=== PATIENT | male | born 1945 | race Caucasian/White ===

== ENCOUNTER → 2018-09-17 | Outpatient (CLI) | payer OTHER | END | disposition home or self-care (01) | LOC: PREOP 06:12 | PROVIDERS: ATTEND Surgery | DX: Z01.818 Encounter for other preprocedural examination (principal) ==

== ENCOUNTER 2018-09-23 10:13 | Day surgery (SDC) | payer MEDICARE, OTHER ==
[~2018-09-23] VITALS: Ht 175.3 cm; Wt 104.3 kg
[~2018-09-23 10:13] MED LIST: ETAN25DI SQ; METH1VIA2 IJ; PRED5TAB PO
[2018-09-23] MEDS ORDERED: NS IV 500 ML 500 ML IV PRN (10:20)
[2018-09-23] MEDS ORDERED: NS IV 500 ML 500 ML ONE (10:20)
[2018-09-23] MEDS ORDERED: fentaNYL INJECTION 100 MCG/2 ML AMP IVP ONE (10:30)
[2018-09-23] MEDS ORDERED: LIDOCAINE JELLY 2% 6 ML SYRINGE MM PRN (10:30)
[2018-09-23] MEDS ORDERED: MIDAZOLAM 2 MG/2 ML (VERSED) VIAL IVP ONE (10:30)
[2018-09-23 10:56] VITALS: BP 131/79
--- NOTE | 2018-09-23 11:19 | Conscious Sedation/ASA ---
Conscious Sedation Pre-Proced Time 10:30 ASA Score 2 For ASA 3 and 4: Consider anesthesia and medical clearance. Also, for patients with a history of failed moderate sedation consider anesthesia. Airway Lungs Heart ASA score ASA 1: a normal healthy patient ASA 2: a patient with a mild systemic disease (mid diabetes, controlled hypertension, obesity ASA 3: a patient with a severe systemic disease that limits activity (angina, COPD, prior Myocardial infarction) ASA 4: a patient with an incapacitating disease that is a constant threat to life (CHF, renal failure) ASA 5: a moribund patient not expected to survive 24 hrs. (ruptured aneurysm) ASA 6: a declared brain- patient whose organs are being harvested. For emergent operations, add the letter E after the classification Mallampati Classification Grade 2 Sedation Plan Analgesia, Amnesia, Plan communicated to team members, Discussed options with patient/fam, Discussed risks with patient/fam The patient is an appropriate candidate to undergo the planned procedure, sedation, and anesthesia. The patient immediately re-assessed prior to indication. CLAY DUKES MD Sep 23, 2018 11:19
--- NOTE | 2018-09-23 11:20 | Progress Note-Pre Operative ---
Pre-Operative Progress Note H&P Reviewed The H&P was reviewed, patient examined and no changes noted. Date Seen by Provider: Sep 23, 2018 Time Seen by Provider: 10:30 Date H&P Reviewed: Sep 23, 2018 Time H&P Reviewed: 10:30 Pre-Operative Diagnosis: family hx colon ca, screening CLAY DUKES MD Sep 23, 2018 11:20
--- NOTE | 2018-09-23 11:23 | Discharge Inst-Surgical ---
D/C Lap Instructions-ERNST Follow Up 5yrs Activity as tolerated High Fiber Diet 25g or more per day Avoid Alcohol, Caffeine, Spicy [place] and Acid foods. Drink 64 fluid oz or more of fluids per day. Symptoms to Report: Fever over 101 degree F, Nausea/Vomiting If any problems/questions: Contact your physician or go to Emergency Room CLAY DUKES MD Sep 23, 2018 11:23
[2018-09-23] MEDS ORDERED: morphine INJ 10 MG/ML 1ML (SYR OR VIAL) IVP PRN ×2 (11:30)
[2018-09-23] MEDS ORDERED: ONDANSETRON 4 MG/2 ML (SDV) Z0FRAN IVP PRN (11:30)
[2018-09-23] MEDS ORDERED: ACETAMINOPHEN 325 MG TABLET PO PRN (11:30)
[2018-09-23] MEDS ORDERED: HYDROcodone/APAP 5 MG/325 MG (LORTAB) TAB PO PRN (11:30)
[2018-09-23] MEDS ORDERED: LIDOCAINE JELLY 2% 6 ML SYRINGE ONE (11:34)
[2018-09-23] MEDS ORDERED: fentaNYL INJECTION 100 MCG/2 ML AMP ONE ×2 (11:34→12:16)
[2018-09-23] MEDS ORDERED: MIDAZOLAM 2 MG/2 ML (VERSED) VIAL ONE ×5 (11:34→12:16)
--- NOTE | 2018-09-23 12:49 | Progress Note-Post Operative ---
Post-Operative Progess Note Surgeon (s)/College Scouting Coordinator (s) Surgeon CLAY DUKES MD College Scouting Coordinator: none Pre-Operative Diagnosis family hx colon ca, screening Post-Operative Diagnosis mild chronic stage 2 ext and int hemorrhoids. Procedure & Operative Findings Date of Procedure 09/23/18 Procedure Performed/Findings colonoscopy Anesthesia Type cs Estimated Blood Loss Estimated blood loss (mL): minimal Specimens/Packing Specimens Removed none CLAY DUKES MD Sep 23, 2018 12:49
[2018-09-23 12:50] VITALS: BP 105/63
[2018-09-23 13:20] VITALS: BP 124/83
--- NOTE | 2018-09-23 14:00 | NUR ---
PT READY TO BE DISMISSED- WAITING ON RIDE, NOT ANSWERING THE PHONE CURRENTLY.
[2018-09-23 16:15] VITALS: BP 124/83
--- NOTE | 2018-09-23 16:15 | NUR ---
SPOKE WITH PT MULTIPLE TIMES REGARDING HIM NOT BEING ALLOWED TO DRIVE TODAY. PT'S BROTHER ARRIVED TO PICK PT UP. 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
--- NOTE | 2018-09-23 17:50 | OPERATIVE REPORT ---
DATE OF SERVICE: 09/23/2018 ATTENDING PRIMARY CARE PHYSICIAN: [facility] in [place], [place]. PREOPERATIVE DIAGNOSIS: Family history of colon cancer screening colonoscopy. POSTOPERATIVE DIAGNOSIS: Mild chronic stage II external and internal hemorrhoids. PROCEDURE: Colonoscopy. SURGEON: Clay Dukes MD ANESTHESIA: Conscious sedation. ESTIMATED BLOOD LOSS: Minimal. FINDINGS: Mild chronic stage II external and internal hemorrhoids. Remainder of the rectum and colon were normal. DISPOSITION: The patient tolerated the procedure well. INDICATIONS: The patient is a 73-year-old male in need of a screening colonoscopy. His last colonoscopy was 10 years ago and as far as he can remember, this was normal. He does not report any major issues with diarrhea, no constipation as well as no red blood per rectum nor any dark tarry stools. He does have a first degree family history of colon cancer with his brother being diagnosed with the disease at age 64. DESCRIPTION OF PROCEDURE: The patient was brought to the endoscopy suite, laid in the left lateral decubitus position. After adequate IV pain and sedative medications and conscious sedation anesthesia, a digital rectal examination was performed. Mild chronic stage II external and internal hemorrhoids were identified, which were not actively edematous nor inflamed and no bleeding. Normal sphincter tone was felt and there are no palpable masses. The prostate gland was palpable and appeared normal. The endoscope was then intubated to the anus and rectum gently insufflated. The endoscope was then advanced to the valves of Coleman of the rectum with no polyps or neoplasms identified. Through the sigmoid colon, no diverticulosis identified. We then proceeded through the remainder of the descending, transverse and ascending colon to the cecum. These segments were normal. There were no polyps or any neoplasms identified throughout the colon or rectum. The endoscope was then slowly withdrawn while taking a second look and suctioning of residual air with no additional findings. The patient tolerated the procedure well. We will recommend medical management with a high fiber diet with at least 30 grams of fiber daily as well as significant amounts of water to promote soft stools on a daily basis and prevent constipation and hard well-formed stools. Due to his family history of colon cancer, the recommendation is to proceed with followup colonoscopy in approximately 5 years as well. Job ID: [id number] DocumentID: [id number] Dictated Date: 09/23/2018 12:42:59 Senior Manager Mmcoe Date: 09/23/2018 17:49:48 Dictated By: CLAY DUKES MD
== END 2018-09-23 16:15 | disposition home or self-care (01) ==
LOC: ENDO 10:13
PROVIDERS: ATTEND Surgery
DX: Z12.11 Encounter for screening for malignant neoplasm of colon (principal); K64.1 Second degree hemorrhoids; Z80.0 Family history of malignant neoplasm of digestive organs; M06.9 Rheumatoid arthritis, unspecified; E03.9 Hypothyroidism, unspecified; I10 Essential (primary) hypertension; K21.9 Gastro-esophageal reflux disease without esophagitis; E78.00 Pure hypercholesterolemia, unspecified; Z85.850 Personal history of malignant neoplasm of thyroid; Z87.891 Personal history of nicotine dependence; Z79.899 Other long term (current) drug therapy

== ENCOUNTER → 2019-05-10 | Outpatient (CLI) | payer OTHER ==
[~2019-05-10] MED LIST changes: +RT-ALBUTEROL SULF 2.5 MG/3 ML PRE-MIX VIAL INH ONE
== END ==
LOC: RT 15:58
PROVIDERS: ATTEND Nurse Practitioner Family
DX: R06.00 Dyspnea, unspecified (principal); R91.8 Other nonspecific abnormal finding of lung field; R05 Cough
CPT/HCPCS: 94060; 94726; 94729

== ENCOUNTER → 2019-06-16 | Outpatient (CLI) | payer OTHER ==
[~2019-06-16] VITALS: Ht 175.3 cm; Wt 109.1 kg
[~2019-06-16] MED LIST changes: +LIDOCAINE 1% INJ 20 ML 20 ML VIAL INJ STA; +LIDOCAINE 1% INJ 20 ML 20 ML VIAL ONE; -RT-ALBUTEROL SULF 2.5 MG/3 ML PRE-MIX VIAL INH ONE
--- NOTE | 2019-06-16 11:12 | Diagnostic Imaging Report ---
INDICATION: Left thyroid nodule. Patient presents for ultrasound-guided fine-needle aspiration. FINDINGS: Patient was brought to the procedure room, placed on table in the supine position. Ultrasound imaging of the left neck was performed to evaluate appropriate entry site. Left neck was then prepped and draped in the usual sterile fashion. Small amount of 1% lidocaine was utilized for local anesthesia. A total of four passes were made into the dominant hypoechoic nodule in the lower pole of the left lobe of the thyroid utilizing 25-gauge needles and fine-needle aspiration technique. Hemostasis was obtained using manual compression. Patient tolerated the procedure well. IMPRESSION: Ultrasound-guided fine-needle aspiration of left lobe dominant thyroid nodule. Pathology results are currently pending. Dictated by: Dictated on workstation # [id number]
== END ==
LOC: RAD 09:52
PROVIDERS: ATTEND Otolaryngology
DX: E04.1 Nontoxic single thyroid nodule (principal)
CPT/HCPCS: 88173; 88305

== ENCOUNTER → 2019-08-03 | Outpatient (CLI) | payer OTHER ==
[~2019-08-03] MED LIST changes: +HOLD METFORMIN - RECEIVED CONTRAST 20 ML VIAL IV SCH; +IOHEXOL 350 MG/ML 100 ML (OMNIPAQUE 350) VIAL IV ONE; -LIDOCAINE 1% INJ 20 ML 20 ML VIAL INJ STA; -LIDOCAINE 1% INJ 20 ML 20 ML VIAL ONE; +NS 100 ML (IVPB) BAG IV ONE
[2019-08-03 09:00] LABS: BUN/CREATININE RATIO 21; CREATININE SERUM 0.72 MG/DL (0.60-1.30); GFR ESTIMATED > 60
--- NOTE | 2019-08-03 10:18 | Diagnostic Imaging Report ---
PROCEDURE: CT chest with contrast only. TECHNIQUE: Multiple contiguous axial images were obtained through the chest after administration of intravenous contrast. Auto Exposure Controls were utilized during the CT exam to meet ALARA standards for radiation dose reduction. INDICATION: Shortness of breath. There are no prior studies available for comparison. FINDINGS: The heart is mildly enlarged and there are coronary calcifications involving the LAD. The aorta is not abnormally dilated and there is no sign of dissection. The pulmonary arteries are not fully opacified but there is no definite defect within the pulmonary arteries to indicate a pulmonary embolus. There are small hilar and mediastinal nodes. These nodes are not pathologically enlarged. There are irregular parenchymal and pleural-based densities involving the right lung. This includes a poorly defined 1 x 2.1 cm parenchymal density in the right upper lobe and a similar-appearing 1.1 x 2.4 cm parenchymal abnormality in the right lower lobe. There is also a rind of increased density along the pleura of the right lung base. These findings could be due to pneumonia/atelectasis. The possibility that there is an element of chronic pulmonary disease present should also be considered. In addition, however there are multiple nodules in both lungs. The largest nodule in the right lung is in the right upper lobe measures approximately 6 mm in size. There is a similar size nodule in the left apex. These nodules are not calcified and consequently worrisome for neoplastic disease. The sections through the upper abdomen failed to show any sign of an acute abnormality. The bone windows are unremarkable for fracture or for destructive lesion. 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 The small low density nodule within the left lobe seen on the prior exam was reportedly biopsied. There is also the biopsy are not known to me. On this exam that nodule is difficult to appreciate. IMPRESSION: 1. There are abnormal parenchymal and pleural based densities involving the right lung. These findings could be due to pneumonia/atelectasis. However, there are also several small pulmonary nodules involving both lungs. These nodules are nonspecific but worrisome for malignancy. CT of the abdomen and pelvis would be recommended for evaluation of a possible primary tumor. 2. There is no acute cardiopulmonary abnormality noted otherwise. 3. There is cardiomegaly and coronary artery disease. Dictated by: Dictated on workstation # [id number]
== END ==
LOC: RAD 08:32
PROVIDERS: ATTEND Nurse Practitioner Family
DX: R05 Cough (principal); R91.8 Other nonspecific abnormal finding of lung field; R06.00 Dyspnea, unspecified; I51.7 Cardiomegaly; I25.10 Atherosclerotic heart disease of native coronary artery without angina pectoris
CPT/HCPCS: 36415; 71260; 82565; 84520

== ENCOUNTER → 2019-09-10 | Outpatient (CLI) | payer OTHER ==
[~2019-09-10] MED LIST changes: +CATHETER FLUSH 10 ML SYR IV PRN
--- NOTE | 2019-09-10 17:25 | Diagnostic Imaging Report ---
PROCEDURE: CT abdomen and pelvis with and without contrast. TECHNIQUE: Precontrast acquisitions were acquired through the abdomen and pelvis. Multiple contiguous axial images were obtained through the abdomen and pelvis after the administration of intravenous contrast. Auto Exposure Controls were utilized during the CT exam to meet ALARA standards for radiation dose reduction. INDICATION: Dyspnea and cough. FINDINGS: There are no prior CT abdomen/pelvis examinations available for comparison. The recent CT chest exam of 08/03/2019 however did note multiple pulmonary nodules. The possibility that these were related to metastatic disease primarily originating in the abdomen and pelvis was raised. The liver is homogeneous and not enlarged. There is no focal mass involving the liver. The spleen, pancreas, adrenals, gallbladder, kidneys, aorta, and inferior vena cava show no sign of an acute abnormality. The stomach is filled with particulate matter and consequently difficult to assess. There is no pelvic mass or free fluid collection noted. The urinary bladder and prostate gland are grossly unremarkable. The appendix is not particularly well visualized, but there are no indirect signs of acute appendicitis. The bone windows show no evidence for a fracture or for a destructive lesion. The irregular pleural thickening in the right lung base seen on the recent CT chest exam is again evident and not significantly changed. IMPRESSION: 1. There is no acute abnormality of the abdomen or pelvis. There is no sign of a mass lesion that would suggest neoplastic disease either. 2. I would recommend that a short-term (three-month) follow-up CT chest exam be performed for continued evaluation of the nodules seen on the prior study. Dictated by: Dictated on workstation # [id number]
== END ==
LOC: RAD 13:12
PROVIDERS: ATTEND Nurse Practitioner Adult Health
DX: R06.00 Dyspnea, unspecified (principal); R05 Cough
CPT/HCPCS: 74178

== ENCOUNTER → 2022-10-28 | Outpatient (RCR) | payer OTHER ==
[~2022-10-28] MED LIST changes: -CATHETER FLUSH 10 ML SYR IV PRN; -ETAN25DI SQ; +ETAN25SY SQ; -HOLD METFORMIN - RECEIVED CONTRAST 20 ML VIAL IV SCH; -IOHEXOL 350 MG/ML 100 ML (OMNIPAQUE 350) VIAL IV ONE; -NS 100 ML (IVPB) BAG IV ONE
== END | disposition home or self-care (01) ==
PROVIDERS: ATTEND Orthopaedic Surgery
DX: Z47.1 Aftercare following joint replacement surgery (principal); G89.29 Other chronic pain; Z96.652 Presence of left artificial knee joint

== ENCOUNTER 2022-11-04 15:30 | Outpatient (RCR) | payer OTHER | END 2022-11-28 | disposition home or self-care (01) | PROVIDERS: ATTEND Orthopaedic Surgery | DX: M25.562 Pain in left knee (principal); G89.29 Other chronic pain; Z96.652 Presence of left artificial knee joint ==

== ENCOUNTER 2023-01-21 11:30 | Outpatient (RCR) | payer OTHER | END 2023-01-28 | disposition home or self-care (01) | PROVIDERS: ATTEND Orthopaedic Surgery | DX: Z47.1 Aftercare following joint replacement surgery (principal); G89.29 Other chronic pain; Z96.652 Presence of left artificial knee joint ==